=== PATIENT | male | born 2005 | race Caucasian/White ===

== ENCOUNTER 2024-05-21 10:55 | Emergency (ER) | payer BC, SELFPAY ==
--- NOTE | 2024-05-21 11:09 | ED.MALEGU ---
HPI - Male Genitourinary General Chief complaint: Urogenital-Male Stated complaint: UTI Time Seen by Provider: 05/21/24 11:20 Source: patient Mode of arrival: ambulatory Limitations: no limitations History of Present Illness HPI Narrative: Rei is a 18-year-old male patient presenting to the clinic today with complaints of a possible urinary tract infection/kidney infection. He reports over the past week he has had some cloudy urine a few days of dysuria. He reports the dysuria has improved however he developed some left flank pain yesterday. No history of kidney stones. Denies any fevers, chills, nausea, or vomiting. Did have some stomach cramping last night but that has subsided. He is sexually active. Last had heterosexual intercourse 3 days ago-reports he has been with the same partner for 3 years. He denies any penile discharge or blood in his urine. He is not concern for any sexually transmitted infections. His partner is not complaining of any symptoms. Review of Systems Review of Systems: Pertinent positives per HPI. Patient denies any fever, chills, rash, headache, visual changes, dizziness, cough, runny nose, sore throat, shortness of breath, chest pain, palpitations, nausea, vomiting, diarrhea, constipation. PMFSH Comments At the time of my signature, I reviewed and agree with the nursing past medical, surgical, social, and family history. There is no relevant family history pertinent to the patient complaint. Exam Narrative: General: Well-developed, obese, in no apparent distress. Head: Normocephalic, atraumatic. Cardio: Regular rate and rhythm, s1 and s2 normal, no murmur appreciated. Resp: Clear to auscultation bilaterally, no rhonchi, rales, wheezing or rubs. Abdomen: Soft, pliable, bowel sounds present in all quadrants, non-tender to palpation, no organomegly, no CVAT tenderness. Course Course Emergency Course: Portions of this record may have been created with voice recognition software. Level of Care: Express Care Visit Vital Signs Vital signs: Vital signs reviewed MDM - Male Genitourinary MDM Narrative Medical decision making narrative: At the time of visit patient is resting comfortably on the exam table. Patient appears to be nontoxic. Labs: Urinalysis dip was performed and was negative for any sign of infection, blood, protein, nitrates, or glucose. Plan: I suspect patient has flank pain. He declined any STI testing in the clinic today. He is afebrile. Encouraged to increase fluids and avoid caffeinated drinks or energy drinks. Supportive measures were discussed with the patient and they voiced understanding discharge instructions and agrees to treatment plan. Return precautions reviewed Differential Diagnosis Differential diagnosis: Likely urinary tract infection, urethritis, epididymitis, prostatitis, acute retention of urine, inguinal hernia and other (STI, pyelonephritis, ureterolithiasis) Discharge Plan Discharge Clinical Impression: Acute flank pain, Cloudy urine Patient Disposition: Home, Self-Care Condition: Stable Instructions: Antibiotic Form, Flank Pain (ED) Additional Instructions: Urinalysis is negative for any sign of infection, blood, protein, glucose, or nitrates. Increase fluids and stay well hydrated Avoid drinking caffeine May take Tylenol/Motrin as needed for pain Follow-up with your primary care doctor next week if symptoms persist Patient Language: Azeri Follow-up/Referrals: PHYSICIAN,CORPORATE RESPONSIBILITY OFFICER [Primary Care Provider] - Time of Disposition: 11:36 Quality NIHSS Nursing Documentation ED NIHSS nursing documentation: reviewed/agree
[2024-05-21 11:15] VITALS: BP 149/85; PULSE 83; RESP 18; TEMP 36.8; O2SAT 100
[2024-05-21 11:33] LABS: EDUAAPPEAR Clear; EDUABILI Negative (Negative); EDUABLOOD Negative (Negative); EDUACOLOR1 Yellow; EDUAGLUCOSE Negative (Negative); EDUAKETONE Negative (Negative); EDUALEUKO Negative (Negative); EDUANITRATE Negative (Negative); EDUAPROTEIN Negative (Negative); EDUASPGRAVITY 1.025; EDUAUROBILI 0.2
== END 2024-05-21 11:40 | disposition home or self-care (01) ==
PROVIDERS: Emergency Provider Nurse Practitioner Family
DX: R10.9 Unspecified abdominal pain (principal); R82.90 Unspecified abnormal findings in urine
CPT/HCPCS: 81003; 99202; G0463